=== PATIENT | male | born 1940 | race African-American/Black ===

== ENCOUNTER 2017-03-01 03:45 | Inpatient (IN) | payer OTHER ==
[2017-03-01] VITALS (8 sets, daily range): BP systolic 170–200; BP diastolic 80–115
[~2017-03-01] VITALS: Ht 186.7 cm; Wt 103.1 kg
[2017-03-01] MEDS ORDERED: IPRATRPIUM/ALBUTEROL 0.5/2.5MG 3 ML NEBU. ONE (04:01)
[2017-03-01] MEDS ORDERED: NITROGLYCERIN OINT 1 GM PACKET. TP ONE (04:15)
[2017-03-01] MEDS ORDERED: IPRATRPIUM/ALBUTEROL 0.5/2.5MG 3 ML NEBU. NEB ONE (04:15)
[2017-03-01] MEDS ORDERED: FUROSEMIDE 40 MG/4 ML VIAL IVP ONE (04:15)
[2017-03-01] MEDS ORDERED: ASPIRIN ENTERIC COATED 325 MG TABLET.DR. PO ONE (04:15)
[2017-03-01] MEDS ORDERED: methylPREDNISolone SOD SUCC PF 125 MG/2 ML VIAL. IV ONE (04:15)
[2017-03-01] MEDS ORDERED: ASPIRIN 81 MG TAB.CHEW ONE (04:19)
[2017-03-01 04:33] LABS: BASO % 1 % (0-3); EOS % 1 % (0-3); HEMATOCRIT 41.5 % (39.0-53.0); HEMOGLOBIN 14.3 g/dL (13.0-17.5); LYMPH # 0.7 x10^3/uL (1.0-4.8); LYMPH % 12 % (24-48); MEAN CORPUSCULAR HEMOGLOBIN 32 pg (25-35); MEAN CORPUSCULAR HGB CONC 34 g/dL (31-37); MEAN CORPUSCULAR VOLUME 92 fL (79-100); MONO # 0.5 x10^3/uL (0.0-1.1); MONO % 9 % (0-9); NEUT # 4.2 x10^3uL (1.8-7.7); NEUT % 78 % (31-73); PLATELET COUNT 265 x10^3/uL (140-400); RED BLOOD COUNT 4.52 x10^6/uL (4.30-5.70); RED CELL DISTRIBUTION WIDTH 13.3 % (11.5-14.5); WHITE BLOOD COUNT 5.4 x10^3/uL (4.0-11.0)
--- NOTE | 2017-03-01 04:49 | PHYS DOC ---
Adult General Chief Complaint Chief Complaint: CHEST PAIN HPI HPI Patient is a 76-year-old gentleman with a history significant for hypertension, diabetes, COPD, CHF, NH, multiple valve replacements who presents to the ER today secondary to chest pain and shortness of breath. Patient reports that the pain woke him up from sleep. Patient has a nausea vomiting fevers shakes chills or cough. Patient reports increased lower extremity edema. Upon arrival to the ER the patient was tachypneic with a pulse ox of 97% on 3 L of nasal cannula O2. Oxygen was taken off the patient to evaluate him on room air. Patient reports that he does not use any oxygen at home. Patient's pulse ox on room air was 93-94%. Review of systems: Constitutional: Denies fever or chills Eyes: Denies change in visual acuity, redness, or eye pain HENT: Denies nasal congestion or sore throat All other review systems are negative except as documented in the history of present illness portion. Physical exam: Constitutional: Well developed, well nourished, no acute distress, non-toxic appearance. HENT: Normocephalic, atraumatic, bilateral external ears normal, oropharynx moist, no oral exudates, nose normal. Eyes: PERRLA, EOMI, conjunctiva normal, no discharge. Neck: Normal range of motion, no tenderness, supple, no stridor. Cardiovascular:Heart rate regular rhythm, Lungs & Thorax: Diffuse inspiratory and expiratory rhonchi. Patient's bibasilar rales. Abdomen: Bowel sounds normal, soft, no tenderness, no masses, no pulsatile masses. Skin: Warm, dry, no erythema, no rash. Back: No tenderness, no CVA tenderness. Extremities: No tenderness, no cyanosis, no clubbing, ROM intact, 2+ bipedal edema Neurologic: Alert and oriented X 3, normal motor function, normal sensory function, no focal deficits noted. Psychologic: Affect normal, judgement normal, mood normal. Chest x-ray reveals normal heart with increased interstitial markings bilaterally consistent with pulmonary edema/CHF. As interpreted by TJ Mello EKG reveals normal sinus rhythm with nonspecific ST-T wave abnormalities with no evidence of ST elevation NH. As interpreted by TJ James. This is a 76-year-old gentleman who presents [facility] the ER [facility] to chest pain and shortness of breath. Patient is clinically and hemodynamically stable in the ED. While the ER the patient was given Lasix 80 mg IV as well as a DuoNeb & Medrol. Patient be monitored in the ER for progressive respiratory failure. [facility] for further evaluation of his chest pain and shortness of breath. I spoke to Dr. Krishna who is adamantly refused to accept the patient for transfer without the results of 2 consecutive troponins. I discussed with Dr. Krishna at all think it is standard of care were appropriate to keep a 76-year-old gentleman in the ER for 6 hours to obtain serial troponins. Patient is not low risk and I do not believe a 2 hour troponin is an appropriate test for this gentleman. During the conversation with Dr. Krishna,he became annoyed at my questioning why they would not accept the patient after 1 troponin and my explaining to him that I do not feel that it is appropriate to keep this 76 yo in an uncomfotable ER setting for 6 hours waiting for a serial troponin. I also discussed the case with the bunk house worker as well as the AOD after I was hung up on by Dr Krishna. After discussion with the AOD, Yeison, we agreed that the patient will need to be admitted to [facility] and that they would not be able to accept care for this patient. Current Medications Current Medications Current Medications Medications (Trade) Dose Ordered Sig/Blanca Start Time Stop Time Status Last Admin Dose Admin Albuterol/ Ipratropium (Duoneb) 3 ml 1X ONCE 03/01/17 04:15 03/01/17 04:16 UNV 03/01/17 04:19 3 ML Aspirin (Aspirin Enteric Coated) 325 mg 1X ONCE 03/01/17 04:15 03/01/17 04:16 UNV Aspirin (Children'S Aspirin) 81 mg STK-MED ONCE 03/01/17 04:19 03/01/17 04:20 DC Furosemide (Lasix) 80 mg 1X ONCE 03/01/17 04:15 03/01/17 04:16 UNV Methylprednisolone Sodium Succinate (SOLU-Medrol 125MG VIAL) 125 mg 1X ONCE 03/01/17 04:15 03/01/17 04:16 UNV Nitroglycerin (Nitro-Bid Oint) 1 inch 1X ONCE 03/01/17 04:15 03/01/17 04:16 UNV EKG EKG [] Radiology/Procedures Radiology/Procedures [] Course & Med Decision Making Course & Med Decision Making Pertinent Labs and Imaging studies reviewed. (See chart for details) [] Dragon Disclaimer Dragon Disclaimer This chart was dictated in whole or in part using Voice Recognition software in a busy, high-work load, and often noisy Emergency Department environment. It may contain unintended and wholly unrecognized errors or omissions. GREGORY RÍOS MD Mar 01, 2017 04:49
[2017-03-01] MEDS ORDERED: ONDANSETRON PF 4 MG/2 ML VIAL. IV PRN (05:00)
[2017-03-01] MEDS ORDERED: MORPHINE SULFATE 2 MG/ML DISP.SYRIN. IV PRN (05:00)
[2017-03-01] MEDS ORDERED: ACETAMINOPHEN 325 MG TABLET PO PRN (05:00)
--- NOTE | 2017-03-01 05:24 | EKG ---
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
[2017-03-01 05:49] LABS: ALBUMIN 3.5 g/dL (3.4-5.0); ALBUMIN/GLOBULIN RATIO 0.7 (1.0-1.7); CALCIUM 9.2 mg/dL (8.5-10.1); CREATININE 2.2 mg/dL (0.7-1.3); GFR 35.5; POTASSIUM 4.9 mmol/L (3.5-5.1); TOTAL BILIRUBIN 0.6 mg/dL (0.2-1.0); TOTAL PROTEIN 8.5 g/dL (6.4-8.2)
[2017-03-01] MEDS: IPRATRPIUM/ALBUTEROL 0.5/2.5MG 3 ML NEBU. NEB SCH ×2 (06:14→10:17)
[2017-03-01] MEDS: NITROGLYCERIN SUBLINGUAL 0.4 MG BOTTLE OF 25. SL PRN ×3 (07:10→10:45)
--- NOTE | 2017-03-01 07:29 | RAD ---
EXAM: CHEST 1 VIEW History: Chest pain COMPARISON: None available. TECHNIQUE: Single portable radiograph of the chest FINDINGS: The cardiac silhouette is unremarkable. Minimal prominent appearing bilateral interstitial lung markings. The costophrenic sulci are clear and well demarcated. IMPRESSION: Minimal prominent appearing bilateral interstitial lung markings probably mild congestive changes.
[2017-03-01] MEDS ORDERED: ALBU2.5V14 NEB (09:36)
[2017-03-01] MEDS ORDERED: MAGN400T3 PO (09:36)
[2017-03-01] MEDS ORDERED: BUSP5TAB PO (09:36)
[2017-03-01] MEDS ORDERED: INSU100I17 SQ (09:36)
[2017-03-01] MEDS ORDERED: ISOS60TA2 PO (09:36)
[2017-03-01] MEDS ORDERED: AMLO5TAB2 PO (09:36)
[2017-03-01] MEDS ORDERED: FURO80TA3 PO (09:36)
[2017-03-01] MEDS ORDERED: LISI-334 PO (09:36)
[2017-03-01] MEDS ORDERED: METO50TA2 PO (09:36)
[2017-03-01] MEDS ORDERED: ASPI-630 PO (09:36)
[2017-03-01] MEDS ORDERED: CHOL2000 PO (09:36)
[2017-03-01] MEDS ORDERED: DONE10TA7 PO (09:36)
[2017-03-01] MEDS ORDERED: INSU100I13 SQ (09:36)
[2017-03-01] MEDS ORDERED: SPIR25TA3 PO (09:47)
[2017-03-01] MEDS ORDERED: NITR0.4T22 SL (09:47)
[2017-03-01] MEDS ORDERED: TAMS0.4C2 PO (09:47)
[2017-03-01] MEDS ORDERED: OXYB5TAB7 PO (09:47)
[2017-03-01] MEDS ORDERED: ROPI0.5T PO (09:47)
[2017-03-01] MEDS ORDERED: SENN8.6T99 PO (09:47)
[2017-03-01] MEDS ORDERED: METOPROLOL TART IMMED RELEASE 50 MG TABLET PO SCH (10:00)
[2017-03-01] MEDS ORDERED: ISOSORBIDE MONONITRATE ER 30 MG TAB.ER.24H PO SCH (10:00)
[2017-03-01] MEDS ORDERED: LISINOPRIL 20 MG TABLET PO SCH (10:00)
--- NOTE | 2017-03-01 10:09 | PDOC2 ---
MIKEABA Jolene DATABASE ADMINISTRATION PROJECT MANAGER 03/01/17 1009: CONSULT Date of Admission DATE: 03/01/17 TIME: 10:08 Reason for Consult: chest pain History of Present Illness Mr Andrade is a 76 year old male with history of coronary artery disease s/p Bypass and significant 3 V CAD with occluded grafts by last heart cath. He presented with retrosternal chest pressure that woke him from sleep this am. He took NTG which relieved his discomfort and went back to sleep only to be wakened an hour later with recurrent pain. After the 3rd episode he presented to the ED for evaluation. He reports associated dyspnea, diaphoresis. Pain was again resolved in the ED after 2x NTG. Currently he is awake and alert and complaining of chest pain, diaphoresis and dyspnea. He was noted to be in mild congestive heart failure and given 80mg IV lasix in the ED. He was given SL NTG which resolved his pain. Prior to this am he denies any chest pain. He has been going to the gym 3 times per week and lifting weights without symptoms. He walks with a walker but reports his functional capacity at at least 100 feet without symptoms. Past Medical History CAD/CABG status diastolic heart failure hypertension hyperlipidemia diabetes mellitus, insulin dependant CVA COPD HILARY cataracts BPH falls diabetic neuropathy CKD stage III proteinuria PTSD Cardiac cath 10/26/14 LM 70% LAD FILM MAKER proximal SIERRA - LAD 70% distal anastamosis SVG-D1 LCX 99% proximal OM1 FILM MAKER OM2 FILM MAKER SVG-OM1 closed RCA FILM MAKER proximal SVG-RCA closed 07/29/15 EF 55% with 1+MR and moderate diastolic dysf. Family History non contributory Social History non smoker, no significant ETOH, no illicit drugs Current Medications Current Medications Albuterol/ Ipratropium (Duoneb) 3 ml STK-MED ONCE .ROUTE ; Start 03/01/17 at 04: 01; Stop 03/01/17 at 04:02; Status DC Methylprednisolone Sodium Succinate (SOLU-Medrol 125MG VIAL) 125 mg 1X ONCE IV Last administered on 03/01/17t 04:15; Start 03/01/17 at 04:15; Stop 03/01/17 at 04:56; Status DC Albuterol/ Ipratropium (Duoneb) 3 ml 1X ONCE NEB Last administered on 04:19; Start 03/01/17 at 04:15; Stop 03/01/17 at 04:56; Status DC Aspirin (Aspirin Enteric Coated) 325 mg 1X ONCE PO Last administered on 04:15; Start 03/01/17 at 04:15; Stop 03/01/17 at 05:00; Status DC Furosemide (Lasix) 80 mg 1X ONCE IVP Last administered on 03/01/17 04:15; Start 03/01/17 at 04:15; Stop 03/01/17 at 04:56; Status DC Nitroglycerin (Nitro-Bid Oint) 1 inch 1X ONCE TP Last administered on 04:15; Start 03/01/17 at 04:15; Stop 03/01/17 at 04:56; Status DC Aspirin (Children'S Aspirin) 81 mg STK-MED ONCE .ROUTE ; Start 03/01/17 at 04:19 ; Stop 03/01/17 at 04:20; Status DC Ondansetron HCl (Zofran) 4 mg PRN Q4HRS PRN IV NAUSEA/VOMITING; Start 03/01/17 at 05:00; Stop 03/02/17 at 04:59 Morphine Sulfate (Morphine 2mg Syringe) 2 mg PRN Q2HR PRN IV PAIN Last administered on 03/01/17 07:15; Start 03/01/17 at 05:00; Stop 03/02/17 at 04:59 Acetaminophen (Tylenol) 650 mg PRN Q4HRS PRN PO FEVER; Start 03/01/17 at 05:00 ; Stop 03/02/17 at 04:59 Nitroglycerin (Nitrostat) 0.4 mg PRN Q5MIN PRN SL CHEST PAIN Last administered on 03/01/17 07:22; Start 03/01/17 at 05:00; Stop 03/02/17 at 04:59 Albuterol/ Ipratropium (Duoneb) 3 ml RTQID NEB ; Start 03/01/17 at 08:00; Stop 03/02/17 at 07:59 Amlodipine Besylate (Norvasc) 5 mg HS PO ; Start 03/01/17 at 21:00 Lisinopril (Prinivil) 30 mg Q12HR PO ; Start 03/01/17 at 10:00 Metoprolol Tartrate (Lopressor) 50 mg BID PO ; Start 03/01/17 at 10:00 Insulin Aspart (NovoLOG) 16 units TIDBFRMEAL SQ ; Start 03/01/17 at 11:30 Insulin Detemir (Levemir) 26 units QHS SQ ; Start 03/01/17 at 21:00 Aspirin (Children'S Aspirin) 81 mg DAILY PO ; Start 03/02/17 at 09:00 Isosorbide Mononitrate (Imdur) 120 mg DAILY PO ; Start 03/01/17 at 10:00 Active Scripts Active Reported Tamsulosin Hcl 0.4 Mg Cap.er.24h 1 Cap PO HS Spironolactone 25 Mg Tablet 1 Tab PO DAILY Senokot (Sennosides) 8.6 Mg Tablet 8.6 Mg PO PRN DAILY Requip (Ropinirole Hcl) 0.5 Mg Tablet 0.25 Tab PO QHS Oxybutynin Chloride 5 Mg Tablet 10 Mg PO DAILY NITROGLYCERIN SubLingual (Nitroglycerin) 0.4 Mg Tab.subl 0.4 Mg SL PRN Q5MIN PRN Metoprolol Tartrate 50 Mg Tablet 1 Tab PO BID Magnesium Oxide 400 Mg Tablet 1 Tab PO DAILY Lisinopril 20 Mg Tablet 1.5 Tab PO Q12HR Isosorbide Mononitrate Er (Isosorbide Mononitrate) 60 Mg Tab.er.24h 120 Mg PO DAILY Novolog Flexpen (Insulin Aspart) 100 Unit/1 Ml Insuln.pen 16 Unit SQ TIDBFRMEAL Lantus Solostar (Insulin Glargine,Hum.rec.anlog) 100 Unit/1 Ml Insuln.pen 26 Unit SQ QHS Furosemide 80 Mg Tablet 1 Tab PO BID Donepezil Hcl 10 Mg Tablet 1 Tab PO DAILY Vitamin D (Cholecalciferol (Vitamin D3)) 2,000 Unit Capsule 1 Cap PO DAILY Buspirone Hcl 5 Mg Tablet 1 Tab PO DAILY Aspirin 81 Mg Tab.chew 81 Mg PO DAILY Amlodipine Besylate 5 Mg Tablet 1 Tab PO HS Albuterol Sulfate Conc Neb Soln (Albuterol Sulfate) 2.5 Mg/0.5 Ml Vial.neb 1 Vial NEB PRN BID PRN Allergies: Coded Allergies: aspirin (Verified Allergy, Intermediate, rash, 03/01/17) gabapentin (Verified Allergy, Unknown, 03/01/17) terazosin (Verified Allergy, Unknown, 03/01/17) Review of System as per HPI General: Alert, Oriented X3, Cooperative, moderate distress HEENT: Atraumatic, EOMI Lungs: Other (coarse with bibasilar crackles) Heart: Normal S1, Normal S2, Other (+systolic murmur) Abdomen: Normal bowel sounds, Soft Extremities: Other (+edema) Neuro: Normal speech, Other Psych/Mental Status: Mental status NL, Mood NL VITALS Vital Signs Date Time Temp Pulse Resp B/P (MAP) Pulse Ox O2 Delivery O2 Flow Rate FiO2 03/01/17 09:13 97.2 91 21 181/90 (120) 100 Room Air 03/01/17 07:45 2.0 Labs ABGs pH 7.31, pCo2 28, pO2 60, Hco3 14 Repeat troponin 1.017 Laboratory Tests Test 03/01/17 03:54 03/01/17 04:14 03/01/17 05:16 Glucose (Fingerstick) 333 mg/dL (70-99) White Blood Count 5.4 x10^3/uL (4.0-11.0) Red Blood Count 4.52 x10^6/uL (4.30-5.70) Hemoglobin 14.3 g/dL (13.0-17.5) Hematocrit 41.5 % (39.0-53.0) Mean Corpuscular Volume 92 fL (79-100) Mean Corpuscular Hemoglobin 32 pg (25-35) Mean Corpuscular Hemoglobin Concent 34 g/dL (31-37) Red Cell Distribution Width 13.3 % (11.5-14.5) Platelet Count 265 x10^3/uL (140-400) Neutrophils (%) (Auto) 78 % (31-73) Lymphocytes (%) (Auto) 12 % (24-48) Monocytes (%) (Auto) 9 % (0-9) Eosinophils (%) (Auto) 1 % (0-3) Basophils (%) (Auto) 1 % (0-3) Neutrophils # (Auto) 4.2 x10^3uL (1.8-7.7) Lymphocytes # (Auto) 0.7 x10^3/uL (1.0-4.8) Monocytes # (Auto) 0.5 x10^3/uL (0.0-1.1) Eosinophils # (Auto) 0.0 x10^3/uL (0.0-0.7) Basophils # (Auto) 0.0 x10^3/uL (0.0-0.2) Sodium Level 136 mmol/L (136-145) Potassium Level 4.9 mmol/L (3.5-5.1) Chloride Level 104 mmol/L (98-107) Carbon Dioxide Level 25 mmol/L (21-32) Anion Gap 7 (6-14) Blood Urea Nitrogen 31 mg/dL (8-26) Creatinine 2.2 mg/dL (0.7-1.3) Estimated GFR (Cockcroft-Gault) 35.5 BUN/Creatinine Ratio 14 (6-20) Glucose Level 345 mg/dL (70-99) Calcium Level 9.2 mg/dL (8.5-10.1) Total Bilirubin 0.6 mg/dL (0.2-1.0) Aspartate Amino Transf (AST/SGOT) 16 U/L (15-37) Alanine Aminotransferase (ALT/SGPT) 17 U/L (16-63) Alkaline Phosphatase 141 U/L (46-116) Troponin I Quantitative 0.519 ng/mL (0-0.055) GP-Sii-P-Type Natriuretic Peptide 2935 pg/mL (0-449) Total Protein 8.5 g/dL (6.4-8.2) Albumin 3.5 g/dL (3.4-5.0) Albumin/Globulin Ratio 0.7 (1.0-1.7) Images EKG - sinus rhythm, IWMI age undet, MICHELLE lead 1 mm in III only, non specific lateral wall changes CXR - mild congestive changes Assessment/Plan 1. NSTEMI with recurrent angina - aspirin, NTG, heparin. 2. acute systolic heart failure - oxygen, diuresis, preliminary EF ~10%. 3. CAD/CABG status with severe 3V CAD and occlusion of multiple grafts with normal LVEF at that time. 4. Accelerated hypertension - add hydralazine IV 5. CKD stage III. Cr appears at baseline 6. IDDM NTG prn for CP, heparin drip, request cardiac cath report for review, transfer to [facility] for tertiary care. Problems: LEONELA PELAEZ MD 03/01/17 1733: CONSULT Allergies: Coded Allergies: aspirin (Verified Allergy, Intermediate, rash, 03/01/17) gabapentin (Verified Allergy, Unknown, 03/01/17) terazosin (Verified Allergy, Unknown, 03/01/17) Assessment/Plan Patient seen and examined at [facility] after transfer. Note entered there. Problems: ABA MCKEON APRN Mar 01, 2017 10:09 LEONELA PELAEZ MD Mar 01, 2017 17:31
--- NOTE | 2017-03-01 10:47 | EKG ---
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
[2017-03-01] MEDS ORDERED: hydrALAZINE 20 MG/ML VIAL. IV PRN (11:00)
[2017-03-01 11:11] LABS: BGAS PH 7.31 (7.35-7.46)
[2017-03-01] MEDS ORDERED: HEPARIN 25,000UTS/500ML PREMIX 500 ML IV PRN (11:15)
--- NOTE | 2017-03-01 11:27 | EKG ---
[address] [address] Test Date: 2017-03-01 Test Time: 07:19:14 Pat Name: JASVIR BISHOP Department: Room: [facility]02 1 Gender: M Bar Back: MELL : 1940 Requested By: ISSA MORIN Order Number: [id number] Reading MD: Measurements Intervals [place] Rate: 98 P: 32 SC: 192 QRS: 24 QRSD: 96 T: 155 QT: 346 QTc: 444 Interpretive Statements SINUS RHYTHM VENTRICULAR PREMATURE COMPLEX(ES) LEFT ATRIAL ABNORMALITY QRS(T) CONTOUR ABNORMALITY CONSIDER ANTEROLATERAL MYOCARDIAL DAMAGE CONSISTENT WITH INFERIOR INFARCT PROBABLY OLD ABNORMAL ECG RI6.01 No previous ECG available for comparison
[2017-03-01] MEDS ORDERED: INSULIN ASPART 300 UNITS/3 ML INSULN.PEN SQ SCH (11:30)
--- NOTE | 2017-03-01 12:24 | CARD ---
APPROVED REPORT EXAM: Two-dimensional and M-mode echocardiogram with Doppler and color Doppler. Other Information Quality : Technically Limited Rhythm : Tachycardia INDICATION Congestive Heart Failure 2D DIMENSIONS RVDd3.1 (2.9-3.5cm)Left Atrium(2D)3.0 (1.6-4.0cm) IVSd1.3 (0.7-1.1cm)Aortic Root(2D)3.4 (2.0-3.7cm) LVDd4.6 (3.9-5.9cm)LVOT Diameter2.1 (1.8-2.4cm) PWd1.3 (0.7-1.1cm)LVDs4.4 (2.5-4.0cm) FS (%) 4.6 %SV10.3 ml Aortic Valve AoV Peak Marquis.103.4cm/sAoV VTI16.3cm AO Peak GR.4.3mmHgLVOT Peak Marquis.97.2cm/s LVOT VTI 15.18cmAO Mean GR.3mmHg ALIZA (VMAX)3.78lw9YNN (VTI)3.19cm2 Mitral Valve MV E Lbgarryr501.4cm/sMV DECEL [id number] MV A Dyhsbozn81.5cm/sE/A Ratio2.5 MV A [id number] Tricuspid Valve TR P. Pwastjfd957en/sTR Peak Gr.16mmHg LEFT VENTRICLE The left ventricle is normal size. There is borderline to mild concentric left ventricular hypertroph y. Left ventricle systolic function is severely impaired. The Ejection Fraction is estimated at 15%. There is severe global hypokinesis of the left ventricle. Tissue Doppler imaging reveals severe left ventricular diastolic dysfunction. Transmitral Doppler flow pattern is Grade IV-fixed restrictive christine stolic dysfunction. RIGHT VENTRICLE The right ventricle is normal size. The right ventricular systolic function is normal. ATRIA The left atrium size is normal. The right atrium size is normal. The interatrial septum is intact wit h no evidence for an atrial septal defect or patent foramen ovale as noted on 2-D or Doppler imaging. AORTIC VALVE The aortic valve is mildly calcified. Doppler and Color Flow revealed no significant aortic regurgita tion. There is no significant aortic valvular stenosis. MITRAL VALVE The mitral valve leaflets are calcified. There is no mitral valve stenosis. Doppler and Color Flow re vealed mild to moderate mitral regurgitation. TRICUSPID VALVE The tricuspid valve is not well visualized. Doppler and Color Flow revealed trace tricuspid valve reg urgitation. There is no tricuspid valve prolapse or vegetation. PULMONIC VALVE The pulmonic valve is not well visualized. Doppler and Color Flow revealed no pulmonic valvular regur gitation. There is no pulmonic valvular stenosis. GREAT VESSELS The aortic root is normal in size. Pulmonary veins not recorded. The IVC was not visualized. PERICARDIAL EFFUSION There is no evidence of significant pericardial effusion. Critical Notification Date: 03/01/2017 Time: 12:01 Other Discipline : Edith Wallace APRN Critical Value: Yes <Conclusion> The left ventricle is normal size. Left ventricle systolic function is severely impaired. The Ejection Fraction is estimated at 15%. There is severe global hypokinesis of the left ventricle. There is borderline to mild concentric left ventricular hypertrophy. There is no significant aortic valvular stenosis. Doppler and Color Flow revealed no significant aortic regurgitation. Doppler and Color Flow revealed mild to moderate mitral regurgitation. Doppler and Color Flow revealed trace tricuspid valve regurgitation.
--- NOTE | 2017-03-01 16:03 | EKG ---
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
[2017-03-01] MEDS ORDERED: amLODIPine BESYLATE 5 MG TABLET PO SCH (21:00)
[2017-03-01] MEDS ORDERED: INSULIN DETEMIR 300 UNITS/3 ML INSULN.PEN. SQ SCH (21:00)
--- NOTE | 2017-03-02 01:21 | SSS ---
ADMIT DATE: 03/01/2017 HISTORY OF PRESENT ILLNESS: The patient is a 76-year-old -Mexican male patient with a multitude of medical problems who came to the Emergency Room of [facility] with chest pain and shortness of breath. He states that the pain has awakened him from sleep. He also complained of nausea, vomiting, also increased cough, and bilateral lower limb swelling. Upon arrival to the Emergency Room, he was tachypneic with a pulse of ____ 97% on 3 liters of oxygen by nasal cannula. He stated that he does not use any oxygen at home. He was investigated in the Emergency Room and has had lab work, which showed that the first set of the troponin was high at 0.519. He is known to have chronic kidney disease with a creatinine of 2.2. We did speak with the attorney law clerk and it seems that there are no beds available at [facility] and therefore he was admitted to the ICU at [facility] for further evaluation. His second set of cardiac enzymes showed that the troponin had risen to 1.017. He did receive aspirin, nitroglycerin 1 inch to the chest wall, as well as furosemide and morphine. He continues to have an extremely high blood pressure and tachycardia. His heart rate was 115, blood pressure was 200/85, and his chest x-ray showed that the cardiac silhouette was unremarkable, with minimal prominent-appearing bilateral interstitial lung markings. The costophrenic angles are clear and well demarcated and we plan to transfer him to [facility] for further evaluation and treatment by the Cardiology Team. PAST MEDICAL HISTORY: Significant for coronary artery disease. He underwent coronary artery bypass graft surgery x5 in [facility] on 09/18/1999. He also underwent cardiac catheterization at the [place], [place], on 10/26/2014. At that time, he had an ejection fraction on an echocardiogram done on 07/29/2015, at 55%. The patient is also known to have chronic diastolic congestive heart failure and a premature ventricular complex. He has other medical problems including type 2 diabetes mellitus, benign prostatic hypertrophy, hypertension, hyperlipidemia, posttraumatic stress disorder, cerebral infarction, mild cognitive impairment, insomnia, environmental allergies, and restless legs syndrome. He has also diabetic neuropathy, recurrent falls, and chronic constipation. He also has biclonal gammopathy and chronic kidney disease with proteinuria. PAST SURGICAL HISTORY: Significant for coronary artery bypass graft surgery. He also has had multiple valve replacements. ALLERGIES: He IS ALLERGIC TO ASPIRIN, GABAPENTIN, AND TERAZOSIN. MEDICATIONS: He is on the following medications: He is on albuterol sulfate and ipratropium bromide by nebulizer 2 times a day. He is on amlodipine besylate 10 mg once a day, aspirin 81 mg once a day, buspirone 5 mg once a day, cholecalciferol with vitamin D 1000 international units once a day. He is also on Aricept 10 mg at bedtime, furosemide 80 mg twice a day. He is on NovoLog insulin 3 times a day with meals, takes 16 units. He is also on Lantus insulin 26 units at bedtime. He is on isosorbide mononitrate 120 mg once a day, lisinopril 30 mg once a day, magnesium oxide 400 mg once a day, and metoprolol tartrate 100 mg once a day. He is also on nitroglycerin 0.2 mg sublingually every 5 minutes as needed for chest pain, and oxybutynin chloride 10 mg once a day. He is on ropinirole 0.5 mg once a day for restless leg syndrome, senna 1 tablet once a day, spironolactone 25 mg once a day, and tamsulosin 0.4 mg. REVIEW OF SYSTEMS: As per history of present illness. PHYSICAL EXAMINATION: GENERAL: On arrival to the Emergency Room, the patient was clearly tachypneic, tachycardic, hypertensive, and orthopneic. VITAL SIGNS: His heart rate initially on arrival was 108, blood pressure was 168/79, temperature was 98.1, respiratory rate 26, and oxygen saturation was 94% on 3 liters of oxygen. HEENT: Showed normocephalic, atraumatic. NECK: Supple. HEART: Showed normal first and second heart sounds with no gallop, rub, or murmur. CHEST: Showed central trachea, equal bilateral expansion, air entry, ____ bilateral basal crepitation. I could not appreciate any rhonchi. ABDOMEN: Markedly distended, soft, nontender. NEUROLOGIC: He is awake, alert, and responding appropriately. Cranial nerves are intact. EXTREMITIES: He moves the extremities without difficulty, and has marked bilateral lower limb edema. LABORATORY DATA: Showed that his white cell count was 5400, hemoglobin 14, hematocrit 41, MCV 92, and platelet count of 265,000 with normal manual differential. His chemistry showed a serum sodium 136, potassium 4.9, chloride 104, bicarbonate 25, anion gap of 7, BUN 31, creatinine 2.2. Estimated GFR was ____ mL per minute. His glucose was high at 345, calcium was 9.2. Total bilirubin, AST, ALT were normal. Alkaline phosphatase was high. His first set of troponin was 0.519. His beta natriuretic peptide was 2935. Total protein was 8.5. Albumin was 3.5. ASSESSMENT AND PLAN: The patient will be transferred to [facility] for further evaluation. He has had an echocardiogram done which showed an ejection fraction of only 10%. He was continued on his aspirin at 81 mg once a day, Levemir insulin 26 units at bedtime, and amlodipine 5 mg at bedtime. He is also on NovoLog insulin 16 units before meals. He was started on a heparin drip as per protocol, hydralazine 10 mg IV every 4 hours, isosorbide mononitrate 120 mg daily, metoprolol tartrate 50 mg p.o. b.i.d., lisinopril 30 mg q.12 hourly. He is on nebulized albuterol and Atrovent 4 times a day, nitroglycerin 0.4 mg sublingually every 5 minutes, acetaminophen 650 mg every 4 hours, morphine sulfate 2 mg IV every 2 hours, and ondansetron 4 mg IV every 4 hours. FINAL DISCHARGE DIAGNOSES: Pet-LT-pbzyvdd elevation myocardial infarction, severe systolic congestive heart failure, ejection fraction of only 10%, coronary artery disease status post coronary artery bypass graft surgery x5, type 2 diabetes, hypertension, and hyperlipidemia. ISSA MORIN MD DR: MARI/raine JOB#: [id number] / [id number]
[2017-03-02] MEDS ORDERED: ASPIRIN 81 MG TAB.CHEW PO SCH (09:00)
== END 2017-03-01 12:21 | disposition short-term general hospital (02) | DRG 280 ==
LOC: ER 03:45 → ICU 08:10
PROVIDERS: ADMIT Internal Medicine; ATTEND Internal Medicine
DX: I21.4 Non-ST elevation (NSTEMI) myocardial infarction (principal); I50.43 Acute on chronic combined systolic (congestive) and diastolic (congestive) heart failure; E11.22 Type 2 diabetes mellitus with diabetic chronic kidney disease; E11.40 Type 2 diabetes mellitus with diabetic neuropathy, unspecified; I13.0 Hypertensive heart and chronic kidney disease with heart failure and stage 1 through stage 4 chronic kidney disease, or unspecified chronic kidney disease; E78.5 Hyperlipidemia, unspecified; F43.10 Post-traumatic stress disorder, unspecified; G25.81 Restless legs syndrome; G47.33 Obstructive sleep apnea (adult) (pediatric); I25.119 Atherosclerotic heart disease of native coronary artery with unspecified angina pectoris; J44.9 Chronic obstructive pulmonary disease, unspecified; N18.3 Chronic kidney disease, stage 3 (moderate); N40.0 Benign prostatic hyperplasia without lower urinary tract symptoms; D47.2 Monoclonal gammopathy; G47.00 Insomnia, unspecified; H26.9 Unspecified cataract; K59.09 Other constipation; R29.6 Repeated falls; Z79.4 Long term (current) use of insulin; Z79.82 Long term (current) use of aspirin; Z79.899 Other long term (current) drug therapy; Z86.73 Personal history of transient ischemic attack (TIA), and cerebral infarction without residual deficits; Z95.1 Presence of aortocoronary bypass graft; Z88.6 Allergy status to analgesic agent; Z88.8 Allergy status to other drugs, medicaments and biological substances; I25.2 Old myocardial infarction
CPT/HCPCS: 36415; 71010; 80053; 82803; 82947; 83880; 84484; 85025; 85610; 85730; 87641; 93005; 93306; 94640; 96374; 96375; J0360; J1815; J1940; J2270; J2930; J7620; 99285-25

== ENCOUNTER 2017-03-09 19:37 | Emergency (ER) | payer OTHER ==
[~2017-03-09] VITALS: Ht 186.7 cm; Wt 106.1 kg
[~2017-03-09 19:37] MED LIST: ALBU2.5V14 NEB; AMLO5TAB2 PO; ASPI-630 PO; BUSP5TAB PO; CHOL2000 PO; DONE10TA7 PO; FURO80TA3 PO; INSU100I13 SQ; INSU100I17 SQ; ISOS60TA2 PO; LISI-334 PO; MAGN400T3 PO; METO50TA2 PO; NITR0.4T22 SL; OXYB5TAB7 PO; ROPI0.5T PO; SENN8.6T99 PO; SPIR25TA3 PO; TAMS0.4C2 PO
--- NOTE | 2017-03-09 19:47 | PHYS DOC ---
Past History Past Medical History: CHF, COPD, Diabetes Past Surgical History: Knee Replacement, Other Alcohol Use: None Drug Use: None Adult General Chief Complaint Chief Complaint: code stroke [facility] HPI Patient is a 76 year old -[place]og[place] male who presents with slurred speech and right arm numbness and delayed response. It started approximately 7 AM when he called his neighbor and told him his arm is going numb. According to neighbor who informed EMS services a change in his speaking. He uses a scooter at home but can ambulate if need be. He was seen earlier today at the [facility] and was given IV Lasix for volume overload. Review of Systems Review of Systems Constitutional: Denies fever or chills [] Eyes: Denies change in visual acuity, redness, or eye pain [] HENT: Denies nasal congestion or sore throat [] Respiratory: Denies cough or shortness of breath [] Cardiovascular: No additional information not addressed in HPI [] GI: Denies abdominal pain, nausea, vomiting, bloody stools or diarrhea [] : Denies dysuria or hematuria [] Musculoskeletal: Denies back pain or joint pain [] Integument: Denies rash or skin lesions [] Neurologic: Denies headache, focal weakness or sensory changes [] Endocrine: Denies polyuria or polydipsia [] Allergies Allergies Allergies Coded Allergies Type Severity Reaction Last Updated Verified aspirin Allergy Intermediate rash 03/01/17 Yes gabapentin Allergy Unknown 03/01/17 Yes terazosin Allergy Unknown 03/01/17 Yes Physical Exam Physical Exam Constitutional: Well developed, well nourished, no acute distress, non-toxic appearance. [] HENT: Normocephalic, atraumatic, bilateral external ears normal, oropharynx moist, no oral exudates, nose normal. [] Eyes: PERRLA, EOMI, conjunctiva normal, no discharge. [] Neck: Normal range of motion, no tenderness, supple, no stridor. [] Cardiovascular:Heart rate regular rhythm, no murmur [] Lungs & Thorax: Bilateral breath sounds clear to auscultation [] Abdomen: Bowel sounds normal, soft, no tenderness, no masses, no pulsatile masses. [] Skin: Warm, dry, no erythema, no rash. [] Back: No tenderness, no CVA tenderness. [] Extremities: No tenderness, no cyanosis, no clubbing, ROM intact, no edema. [] Neurologic: Alert and oriented X 3, 2 out of 4 strength in the right upper extremity, 5 out of 5 strength in the bilateral lower chimneys in the left upper extremities, speaking appropriately and lucidly. Psychologic: Affect normal, judgement normal, mood normal. [] EKG EKG EKG shows sinus rhythm with a rate of 84 bpm with occasional PVCs noted, no ST elevations, T-wave inversions noted in leads aVL, V4 through V6, QTC 457 ms, as interpreted by me. New T-wave inversions V4 through V6 compared to February Radiology/Procedures Radiology/Procedures [address] [address] IMAGING REPORT Signed PATIENT: JASVIR BISHOP ACCOUNT: [id number] : 1940 LOCATION: ER AGE: 76 SEX: M EXAM STATUS: PRE ER ORD. PHYSICIAN: DARIUS ZHAO MD REASON: code stroke PROCEDURE: CT HEAD WO CONTRAST Exam performed: CT scan of the head without contrast. Date of Service: 03/09/2017. Comparison: None available. Clinical History: Code stroke, right sided numbness. Technique: Helical acquisitions are obtained from the foramen magnum to the vertex without intravenous administration of contrast. Findings: There is prominence of cortical sulci and ventricular system compatible with age related atrophy. There are areas of low-attenuation in both periventricular deep white matter suggesting small vessel ischemic changes. Normal degroot-white differentiation is maintained. There is no extra axial fluid collection, intraparenchymal hemorrhage or mass lesion. The visualized portions of the orbits, paranasal sinuses and the mastoid air cells appear clear. The calvarium is intact. Impression: 1. Age-appropriate atrophy without any acute intracranial process. PQRS Compliance Statement: One or more of the following individualized dose reduction techniques were utilized for this examination: 1. Automated exposure control 2. Adjustment of the mA and/or kV according to patient size 3. Use of iterative reconstruction technique Results of his negative Stroke Protocol CT scan of the brain were given to Dr. Zhao in the emergency room soon after completion of the study at 8:02 PM Electronically signed by: Carla Tony MD (03/09/2017 8:04 PM) [facility] DICTATED AND SIGNED BY: CARLA TONY MD DATE: 03/09/172002 CC: DARIUS ZHAO MD; MARY JO SANTIAGO Impressions: Dysarthria Right arm weakness NIH 6 Diabetes Congestive heart failure COPD Elevated troponin Course & Med Decision Making Course & Med Decision Making Pertinent Labs and Imaging studies reviewed. (See chart for details) Patient arrived in his voice has improved somewhat but is not back to his baseline. His right arm is having difficulties with moving it and pointing. He is also having trouble swallowing. He returned to [place] he was on Coumadin however is not listed on his med list and is INR is 1.0. TPA was ordered and started immediately after these results came back. Spoke with Dr. Turner who agrees with starting TPA. Patient doesn't have any contraindications for TPA and the risks and benefits were explained to him. I specifically told him there is a 5-8 % chance of internal hemorrhage, or other poor outcome. He states he's agreeable to starting the medication and accepts these risks. He hasn't elevated creatinine and a GFR of 32 which prohibits contrast administration and cannot do it CT angios head neck. Dr. Turner's okay accepting the patient to the ICU at [place] without a CT angios head. Patient does have an elevated troponin but does not have any chest pain or discomfort. EKG does have new T- wave inversions in the lateral leads V4 through V6. Upon review his chart he had an elevated troponin upon his visit on 03/01. I spoke with Dr. Bates who accepts the patient. Critical care time: 65 minutes of critical care time was used on this patient excluding procedures. After infusion of tPA was completed he started having dysarthria and his right arm is now completely flaccid. NIH was6, now it is a 13. I spoke with Dr. Turner who recommends calling [facility] and speaking with their neurology and interventional team. This has been done a spoke with Dr. Lynch who recommends the patient be transferred to [facility]. Patient is agreeable to being transferred. I did speak with his son anthony at [phone] the patient was able to tell me this phone number and it was in the patient's phone therefore I was able to contact him and let him know about his dad situation, the fact that he needs studies with contrast which could cause renal failure and that he is going to be transferred to [facility] on the [place]. Anthony states he will meet them in the ER on the [place]. EMS is here currently ready to transfer the patient. Dragon Disclaimer Dragon Disclaimer This chart was dictated in whole or in part using Voice Recognition software in a busy, high-work load, and often noisy Emergency Department environment. It may contain unintended and wholly unrecognized errors or omissions. Departure Departure: Impression: Primary Impression: Acute ischemic stroke Disposition: 02 XFER SHT-TRM HOSP Condition: GUARDED Referrals: MARY JO SANTIAGO (PCP) DARIUS ZHAO MD Mar 09, 2017 19:47
--- NOTE | 2017-03-09 20:07 | RAD ---
Exam performed: CT scan of the head without contrast. Date of Service: 03/09/2017. Comparison: None available. Clinical History: Code stroke, right sided numbness. Technique: Helical acquisitions are obtained from the foramen magnum to the vertex without intravenous administration of contrast. Findings: There is prominence of cortical sulci and ventricular system compatible with age related atrophy. There are areas of low-attenuation in both periventricular deep white matter suggesting small vessel ischemic changes. Normal degroot-white differentiation is maintained. There is no extra axial fluid collection, intraparenchymal hemorrhage or mass lesion. The visualized portions of the orbits, paranasal sinuses and the mastoid air cells appear clear. The calvarium is intact. Impression: 1. Age-appropriate atrophy without any acute intracranial process. PQRS Compliance Statement: One or more of the following individualized dose reduction techniques were utilized for this examination: 1. Automated exposure control 2. Adjustment of the mA and/or kV according to patient size 3. Use of iterative reconstruction technique Results of his negative Stroke Protocol CT scan of the brain were given to Dr. Wheat in the emergency room soon after completion of the study at 8:02 PM Electronically signed by: Carla Tony MD (03/09/2017 8:04 PM) [facility]
[2017-03-09] MEDS ORDERED: ALTEPLASE 100 MG IV ONE (20:18)
[2017-03-09 20:22] LABS: BASO % 1 % (0-3); EOS # 0.1 x10^3/uL (0.0-0.7); EOS % 2 % (0-3); HEMATOCRIT 31.3 % (39.0-53.0); HEMOGLOBIN 10.8 g/dL (13.0-17.5); LYMPH # 0.7 x10^3/uL (1.0-4.8); LYMPH % 17 % (24-48); MEAN CORPUSCULAR HEMOGLOBIN 32 pg (25-35); MEAN CORPUSCULAR HGB CONC 35 g/dL (31-37); MEAN CORPUSCULAR VOLUME 91 fL (79-100); MONO # 0.8 x10^3/uL (0.0-1.1); MONO % 17 % (0-9); NEUT # 2.9 x10^3uL (1.8-7.7); NEUT % 64 % (31-73); PLATELET COUNT 267 x10^3/uL (140-400); RED BLOOD COUNT 3.44 x10^6/uL (4.30-5.70); RED CELL DISTRIBUTION WIDTH 13.2 % (11.5-14.5); WHITE BLOOD COUNT 4.5 x10^3/uL (4.0-11.0)
[2017-03-09 20:27] LABS: CALCIUM 8.6 mg/dL (8.5-10.1); CREATININE 2.4 mg/dL (0.7-1.3); GFR 32.1; POTASSIUM 3.8 mmol/L (3.5-5.1)
[2017-03-09] MEDS ORDERED: ALTEPLASE 0 MG IV SCH (20:45)
[2017-03-09] MEDS ORDERED: LABETALOL 20 MG/4 ML DISP.SYRIN. IV PRN (20:45)
[2017-03-09] MEDS ORDERED: ALTEPLASE 0 MG IV ONE (20:45)
[2017-03-09] MEDS ORDERED: ALTEPLASE 9 MG IV ONE (20:45)
[2017-03-09] MEDS ORDERED: ALTEPLASE 81 MG IV SCH (20:45)
[2017-03-09] MEDS ORDERED: IV NORMAL SALINE 50ML 50 ML IV ONE (20:45)
[2017-03-09 22:11] VITALS: BP 151/89
--- NOTE | 2017-03-09 22:36 | EKG ---
[address] [address] Test Date: 2017-03-09 Test Time: 19:54:31 Pat Name: JASVIR BISHOP Department: Room: Gender: M [employer] Operator: : 1940 Requested By: DARIUS ZHAO Order Number: [id number] Reading MD: Measurements Intervals [place] Rate: 84 P: 52 GA: 164 QRS: 48 QRSD: 102 T: 173 QT: 384 QTc: 457 Interpretive Statements SINUS RHYTHM VENTRICULAR PREMATURE COMPLEX(ES) QRS(T) CONTOUR ABNORMALITY CONSIDER ANTEROSEPTAL MYOCARDIAL DAMAGE ST & T ABNORMALITY, CONSIDER ANTEROLATERAL ISCHEMIA OR LEFT VENTRICULAR STRAIN T ABNORMALITY IN ANTERIOR LEADS INFEROLATERAL LEADS ABNORMAL ECG RI6.01 No previous ECG available for comparison
== END 2017-03-09 22:24 | disposition short-term general hospital (02) ==
LOC: ER 19:37
DX: I63.9 Cerebral infarction, unspecified (principal); J44.9 Chronic obstructive pulmonary disease, unspecified; E11.9 Type 2 diabetes mellitus without complications; I50.9 Heart failure, unspecified; R79.89 Other specified abnormal findings of blood chemistry; Z88.6 Allergy status to analgesic agent; Z88.8 Allergy status to other drugs, medicaments and biological substances
CPT/HCPCS: 36415; 37195; 70450; 80048; 82947; 83605; 84484; 85025; 85384; 85610; 85730; 93005; 99291; G0480; J2997